=== PATIENT | female | born 1955 | race Caucasian/White ===

== ENCOUNTER 2020-01-19 15:29 | Emergency (ER) | payer MEDICAID, SELFPAY ==
--- NOTE | ~2020-01-19 | XR_ITS ---
EXAMINATION: XR chest 2V 01/19/2020 16:08 INDICATION: Hypertension. PROCEDURE: 2 view chest COMPARISON: No prior studies for comparison. FINDINGS: The lungs are clear. The cardiomediastinal silhouette is within normal limits. There are no pleural effusions. There is no pneumothorax suspected. There are healed right rib fractures. The lungs are hyperinflated which is consistent with, but not diagnostic of chronic obstructive pulmonar y disease. IMPRESSION: 1: NO ACUTE CARDIOPULMONARY DISEASE. Reviewed, dictated and finalized at location A.
[2020-01-19 15:34] VITALS: BP 193/131; PULSE 96; RESP 18; TEMP 36.9; O2SAT 96
--- NOTE | 2020-01-19 15:41 | ECG_ITS ---
Measurements Intervals Bolt Rate: 96 P: 58 DC: 173 QRS: -3 QRSD: 89 T: 63 QT: 356 QTc: 450 Interpretive Statements SINUS RHYTHM ATRIAL PREMATURE COMPLEX DELAYED PRECORDIAL R/S TRANSITION INFERIOR INFARCT, AGE INDETERMINATE BASELINE ARTIFACT- I, II, III, AVL ABNORMAL ECG Electronically Signed On 01-19-2020 17:04:47 CDT by Uzair Aceves D.O.
[2020-01-19] MEDS: ASPIRIN 81 MG CHEWABLE TABLET 324 MG PO (15:46)
[2020-01-19 15:55] LABS: Basophils Absolute Auto 0.1 K/mm3 (0.0-0.1); Basophils Percent Auto 0.6 % (0.2-1.2); Eosinophils Absolute Auto 0.2 K/mm3 (0-0.3); Eosinophils Percent Auto 2.4 % (0-4.4); Hematocrit 45.2 % (37.0-47.0); Hemoglobin 15.6 g/dL (12.0-15.0); Immature Granulocyte Absolute 0.03 K/mm3 (0.00-0.031); Immature Granulocyte Percent A 0.4 % (0-0.5); Lymphocytes Absolute Auto 2.72 K/mm3 (0.9-3.2); Lymphocytes Percent Auto 32.8 % (18.3-44.2); Mean Corpuscular HGB Conc 34.5 g/dl (32-36); Mean Corpuscular Hemoglobin 32.6 pg (26-34); Mean Corpuscular Volume 94.4 fl (80-100); Mean Platelet Volume 9.8 fl (7.4-10.4); Monocytes Absolute Auto 0.6 K/mm3 (0.1-0.6); Monocytes Percent Auto 7.5 % (2.6-8.5); Neutrophils Absolute Auto 4.7 K/mm3 (1.3-6.7); Neutrophils Percent Auto 56.3 % (45.5-73.1); Platelet Count Result 286 k/mm3 (150-375); Red Blood Count 4.79 M/mm3 (4.2-5.4); Red Cell Distribution Width 13.2 % (11.5-14.5); White Blood Count 8.3 K/mm3 (4.5-10.0)
--- NOTE | 2020-01-19 15:57 | ED.RECABL ---
HPI - Recheck/Abnormal Lab/Rx General Chief Complaint: Recheck/Abnormal Lab/Rx <Renetta Walker PA-C - Last Filed: 01/19/20 18:14> Stated Complaint: ELEVATED BP <Renetta Walker PA-C - Last Filed: 01/19/20 18:14> Time Seen by Provider: 01/19/20 15:35 <FRANCA Ma Last Filed: 01/19/20 18:14> Source: patient <Renetta Walker PA-C - Last Filed: 01/19/20 18:14> Mode of arrival: ambulatory <FRANCA Ma Last Filed: 01/19/20 18:14> Limitations: no limitations <Renetta Walker PA-C - Last Filed: 01/19/20 18:14> History of Present Illness HPI narrative: This is a 64 year old female that presents to the ER for elevated blood pressure. Reports she was getting a physical for work and was told her blood pressure was elevated and that she should come to the ER. Patient is asymptomatic. No known history of hypertension, but reports she has not seen a doctor in a number of years. Denies headache, weakness, chest pain, shortness of breath, or lower extremity edema. <Renetta Walker PA-C - Last Filed: 01/19/20 18:14> Related Data Home Medications: Home Medications Medication Instructions Recorded Confirmed No Home Medications 01/19/20 01/19/20 <Renetta Walker PA-C - Last Filed: 01/19/20 18:14> Allergies/Adverse Reactions: Allergies Allergy/AdvReac Type Severity Reaction Status Date / Time No Known Allergies Allergy Mild Verified 10/26/17 15:18 <FRANCA Ma Last Filed: 01/19/20 18:14> Review of Systems Review of Systems: Narrative: CONSTITUTIONAL: Denies fever CARDIOVASCULAR: Denies chest pain, or edema. RESPIRATORY: Denies dyspnea. NEUROLOGIC: Denies headache, numbness, or weakness. <FRANCA Ma Last Filed: 01/19/20 18:14> All systems reviewed & are unremarkable except as noted in HPI and below <Renetta Walker PA-C - Last Filed: 01/19/20 18:14> PMFSH Past Medical History Medical History: Medical History (Updated 01/19/20 @ 18:13 by Renetta Walker PA-C) No active medical problems <Renetta Walker PA-C - Last Filed: 01/19/20 18:14> Social History Social History: Social History (Updated 01/19/20 @ 18:08 by Renetta Walker PA-C) Smoking status: Current every day smoker <Renetta Walker PA-C - Last Filed: 01/19/20 18:14> Exam Narrative: Exam Narrative: GENERAL: Well-appearing, well-nourished, and in no acute distress. HEAD: Normocephalic, atraumatic. EYES: EOMI. NECK: Supple. No adenopathy or masses. No carotid bruits or JVD CHEST: Clear to auscultation. No respiratory distress. No wheezes rales or rhonchi HEART: Regular rate and rhythm. No murmur heard. Normal peripheral pulses. EXTREMITIES: Normal range of motion. No edema. SKIN: Warm, dry, no rash. NEURO: No focal deficits. Alert and oriented x3. PSYCH: Normal mood and affect <Renetta Walker PA-C - Last Filed: 01/19/20 18:14> Course Consultations Consultation #1: Spoke with Dr. Gleason about patient and work-up will follow-up in clinic <Renetta Walker PA-C - Last Filed: 01/19/20 18:14> Date: 01/19/20 <Renetta Walker PA-C - Last Filed: 01/19/20 18:14> Time: 18:12 <Renetta Walker PA-C - Last Filed: 01/19/20 18:14> Vital Signs Vital signs: Vital Signs Temperature 36.9 C 01/19/20 15:34 Pulse Rate 96 01/19/20 15:34 Respiratory Rate 18 01/19/20 15:34 Blood Pressure 193/131 H 01/19/20 15:34 Pulse Oximetry 96 01/19/20 15:34 Temperature 36.7 C 01/19/20 18:22 Pulse Rate 70 01/19/20 18:22 Respiratory Rate 20 01/19/20 18:22 Blood Pressure 155/88 H 01/19/20 18:22 Pulse Oximetry 99 01/19/20 18:22 <Renetta Walker PA-C - Last Filed: 01/19/20 18:14> Vital Signs Temperature 36.9 C 01/19/20 15:34 Pulse Rate 96 01/19/20 15:34 Respiratory Rate 18 01/19/20 15:34 Blood Pressure 193/131 H 01/19/20 15:34 Pulse Oximetry 96 01/19/20 15:34 Temper
[2020-01-19 16:04] LABS: INR 0.9; Prothrombin Time 11.7 Seconds (11.1-14.7)
[2020-01-19 16:05] LABS: Partial Thromboplastin Time 25.2 SECONDS (22.3-36.8)
[2020-01-19 16:08] LABS: Blood Urea Nitrogen 13 mg/dL (7-17); Calcium 9.4 mg/dL (8.4-10.2); Carbon Dioxide 25 mmol/L (22-30); Chloride 103 mmol/L (98-107); Estimated CRCL calculation 61 ml/min; Estimated Glomerular Filt Rate > 60; Glucose 109 mg/dL (65-105); Sodium 136 mmol/L (137-145)
[2020-01-19 16:17] LABS: NT Pro B Type Natriuretic Pept 60 PG/ML (5-100)
[2020-01-19 16:20] LABS: Troponin I < 0.012 ng/mL (0.000-0.034)
[2020-01-19 18:22] VITALS: BP 155/88; PULSE 70; RESP 20; TEMP 36.7; O2SAT 99
== END 2020-01-19 18:24 | disposition home or self-care (01) ==
PROVIDERS: Physician Assistant; Emergency Provider Emergency Medicine
DX: I10 Essential (primary) hypertension (principal); F17.200 Nicotine dependence, unspecified, uncomplicated; I49.1 Atrial premature depolarization; R94.31 Abnormal electrocardiogram [ECG] [EKG]
CPT/HCPCS: 36415; 71046; 80048; 83880; 84484; 85025; 85610; 85730; 93005; 99284; A9270

== ENCOUNTER 2022-10-24 14:46 | Emergency (ER) | payer MEDICARE, MEDICAID, SELFPAY ==
[2022-10-24 14:54] VITALS: BP 149/101; PULSE 106; RESP 16; TEMP 36.2; O2SAT 96
--- NOTE | 2022-10-24 15:23 | ED.URI ---
HPI - URI/Sore Throat General Chief Complaint: Upper Respiratory Infection Stated Complaint: cough sx Time Seen by Provider: 10/24/22 15:23 Source: patient and RN notes reviewed Mode of arrival: ambulatory Limitations: no limitations History of Present Illness HPI Narrative: 67-year-old female presented for complaint of frequent productive cough for 1 week. Endorses mild sinus congestion and drainage. She is taking [id number] cough medication without significant relief. She endorses generalized rib pain with coughing. She denies shortness of breath, wheezing, fatigue, nausea, vomiting, diarrhea, fevers or chills. She denies sick contacts. She does not have a PCP, therefore denies medical history. Current smoker. MD elicited complaint: cough Related Data Allergies Allergy/AdvReac Type Severity Reaction Status Date / Time No Known Allergies Allergy Mild Verified 10/24/22 14:53 Review of Systems Review of Systems: CONSTITUTIONAL: Denies malaise, chills, sweats, fever EYES: Denies visual changes, redness, or discharge ENT: Denies rhinorrhea, congestion, sinus pain, otalgia, sore throat CARDIOVASCULAR: Denies chest pain, palpitations, edema RESPIRATORY: Reports cough, post nasal drainage. Denies dyspnea GASTROINTESTINAL: Denies abdominal pain, nausea, vomiting, diarrhea SKIN: Denies rash or itching MUSCULOSKELETAL: Denies myalgia NEUROLOGIC: Denies headache PMFSH Past Medical History Medical History No active medical problems Social History Social History Smoking status: Current every day smoker Exam Narrative: GENERAL: Ill-appearing, nontoxic no acute distress. EYES: PERRLA, conjunctivae clear ENT: Mucous membranes moist. TMs pearly blas with dull light reflex bilaterally; no tragal tenderness. Oropharynx erythematous without lesions or exudate NECK: Supple. No lymphadenopathy CHEST: Clear to auscultation, breath sounds equal. frequent [employer] cough. No wheezing, rhonchi, rales, or stridor. No respiratory distress, speaks in full sentences. HEART: Regular rate and rhythm. No murmur heard. SKIN: Warm, dry, no rash. NEURO: Alert and oriented x3. PSYCH: Normal mood and affect Course Course Emergency Course: Patient is aware of diagnosis, understands and agrees to treatment plan. Anticipatory guidance given. Patient agrees to follow-up as directed and is aware of reasons to seek care at the emergency department. Portions of this record may have been created with voice recognition software Level of Care: Express Care Visit Vital Signs Vital signs: Vital Signs Temperature 97.2 F L 10/24/22 14:54 Pulse Rate 106 H 10/24/22 14:54 Respiratory Rate 16 10/24/22 14:54 Blood Pressure 149/101 H 10/24/22 14:54 Pulse Oximetry 96 10/24/22 14:54 Oxygen Delivery Room Air 10/24/22 14:54 Temperature 97.2 F L 10/24/22 14:54 Pulse Rate 106 H 10/24/22 14:54 Respiratory Rate 16 10/24/22 14:54 Blood Pressure 149/101 H 10/24/22 14:54 Pulse Oximetry 96 10/24/22 14:54 Oxygen Delivery Room Air 10/24/22 14:54 reviewed MDM - URI/Sore Throat MDM Narrative Medical decision making narrative: Advised supportive measures and signs/symptoms to go to the ER. Pt is appropriate for outpt treatment and f/u. Differential Diagnosis Differential diagnosis: Likely upper respiratory infection, sinusitis, viral infection and bronchitis Discharge Plan Discharge Clinical Impression: Bronchitis Patient Disposition: Home, Self-Care Condition: Stable Instructions: Antibiotic Form, Acute Bronchitis (ED) Additional Instructions: Avoid crowds until you do not have a fever and symptoms are improved Take medication as directed Recommend Flonase spray and Zyrtec (or Claritin/Jaz) ifyou have sinus drainage/congestion over the counter Cough syrup may cause drowsiness; avoid driving o
== END 2022-10-24 15:35 | disposition home or self-care (01) ==
PROVIDERS: Emergency Provider Nurse Practitioner Family
DX: J40 Bronchitis, not specified as acute or chronic (principal); F17.200 Nicotine dependence, unspecified, uncomplicated
CPT/HCPCS: 99213; G0463

== ENCOUNTER 2023-05-21 14:08 | Outpatient (CLI) | payer MEDICARE, MEDICAID, SELFPAY ==
--- NOTE | ~2023-05-21 | US_ITS ---
EXAMINATION: US arterial ankle brachial ind DATE: 05/21/2023 15:03 INDICATION: Peripheral vascular disease TECHNIQUE: Segmental pressures and plethysmographic and Doppler waveforms of the brachial and lower e xtremity arteries were obtained. COMPARISON: None. FINDINGS: Right and left brachial artery pressures of 145 mm Hg and 152 mm Hg, respectively, are concordant (no rmal difference <= 30 mmHg). The right ankle-brachial index (NAVID) is 0.66 (normal >= 0.9-1.0). The right great toe-brachial index (TBI) is 0.30 (normal >= 0.65). Arterial Doppler waveforms are biphasic with brisk systolic upstrokes at both right posterior tibial and dorsalis pedis arteries. The left NAVID is 0.99. The left TBI is 0.46. Arterial Doppler waveforms are biphasic with brisk systol ic upstrokes at both left posterior tibial and dorsalis pedis arteries. IMPRESSION: 1. Arterial occlusive disease to bilateral lower limbs with moderately decreased right NAVID and TBI an d borderline left NAVID with mildly decreased left TBI. Reviewed, dictated and finalized at location A. IMPRESSION: 1. Arterial occlusive disease to bilateral lower limbs with moderately decrease d right NAVID and TBI and borderline left NAVID with mildly decreased left TBI.
== END 2023-05-21 14:09 | disposition home or self-care (01) ==
PROVIDERS: PCP Nurse Practitioner Family; Visit Provider Nurse Practitioner Family
DX: I73.9 Peripheral vascular disease, unspecified (principal)
CPT/HCPCS: 93922

== ENCOUNTER → 2023-05-24 15:50 | Outpatient (CLI) | payer MEDICARE, MEDICAID, SELFPAY ==
--- NOTE | ~2023-05-24 | MR_ITS ---
EXAMINATION: MR lumbar spine wo con DATE: 05/24/2023 16:32 INDICATION: Chronic low back pain. TECHNIQUE: Magnetic resonance imaging (MRI) of the lumbar spine was performed without intravenous con trast. Sequences included sagittal T2-weighted FSE, sagittal T2-weighted FS FSE, sagittal T1-weighted FSE, and axial T2-weighted FSE. COMPARISON: None FINDINGS: There is 22 degrees dextroscoliosis of thoracolumbar spine. There is 3 mm retrolisthesis of L2 on L3. There is mild chronic anterior wedging of T11 vertebral body. There is mildly decreased di sc height at L1-L2, severely decreased disc height at L2-L3, mildly decreased disc at L3-L4 and L4-L5 , and moderately decreased disc height at L5-S1 with endplate remodeling. The distal spinal cord sign al intensity is normal. The conus medullaris is at T12. The following disc levels are specifically di scussed: L1-L2: The disc is bulging. There is moderate bilateral facet joint osteoarthritis. There is mild daron ateral neural foraminal stenosis. There is mild central canal stenosis. L2-L3: The disc is bulging. There is severe bilateral facet joint osteoarthritis. There is mild bilat eral neural foraminal stenosis. There is mild central canal stenosis. L3-L4: The disc is bulging. There is moderate right and severe left facet joint osteoarthritis. There is mild bilateral neural foraminal stenosis. There is mild central canal stenosis. L4-L5: The disc is bulging and has an annular fissure. There is severe right and moderate left facet joint osteoarthritis. There is mild bilateral neural foraminal stenosis. There is mild central canal stenosis. L5-S1: The disc is bulging. There is severe bilateral facet joint osteoarthritis. There is mild bilat eral neural foraminal stenosis. There is mild central canal stenosis. IMPRESSION: 1. Severe lumbar spondylosis. Reviewed, dictated and finalized at location E.
== END ==
PROVIDERS: PCP Family Medicine; Visit Provider Family Medicine
DX: M47.896 Other spondylosis, lumbar region (principal)
CPT/HCPCS: 72148